=== PATIENT | male | born 1970 | race Hispanic/Latino ===

== ENCOUNTER 2018-01-31 11:55 | Inpatient (IN) | payer BC ==
[~2018-01-31] VITALS: Ht 167.6 cm; Wt 85.0 kg
[2018-01-31] MEDS ORDERED: IOPAMIDOL 300MG/ML 100 ML INFUS..BTL IV ONE (13:15)
[2018-01-31] MEDS ORDERED: PIPER-TAZ 3.375 GM 50 ML IV ONE (14:00)
[2018-01-31] MEDS ORDERED: PIPER-TAZ 3.375 GM 50 ML IV SCH ×2 (14:00→22:00)
[2018-01-31] MEDS ORDERED: HYDROMORPHONE 1MG/1ML INJ IV PRN (14:00)
[2018-01-31] MEDS ORDERED: MORPHINE SULFATE INJ 10 MG/ML IV ONE (14:00)
[2018-01-31] MEDS ORDERED: ONDANSETRON HCL INJ 2 MG/ML VIAL IV PRN (14:00)
[2018-01-31] MEDS ORDERED: ACETAMINOPHEN 325 MG TAB PO ONE (14:15)
[2018-01-31] MEDS: SODIUM CHLORIDE 0.9% 1000ML 1,000 ML IV SCH ×2 (14:21→21:43)
[2018-01-31 16:51] VITALS: BP 117/59
[2018-01-31] MEDS: CEFTRIAXONE SOD 1 GM VIAL IV SCH (19:53)
[2018-01-31 20:00] VITALS: BP 114/55
[2018-01-31] MEDS: METRONIDAZOLE 750MG/NS 150ML 150 ML IV SCH (21:43)
[2018-01-31 23:11] VITALS: BP 114/55
[2018-02-01] VITALS (7 sets, daily range): BP systolic 106–112; BP diastolic 53–63
[2018-02-01 04:44] LABS: BASOPHILS % 0.4 % (0.0-1.0); EOSINOPHILS # (AUTO) 0.1 (0.0-0.4); EOSINOPHILS % 1.6 % (0.0-6.0); HEMATOCRIT 35.7 % (38.2-49.6); HEMOGLOBIN 12.1 g/dL (14.0-18.0); LYMPHOCYTES # (AUTO) 1.4 (1.0-3.2); LYMPHOCYTES % 25.6 % (18.0-39.1); MEAN CORPUSCULAR HGB CONC 33.9 g/dL (31-35); MEAN CORPUSCULAR VOLUME 88.6 fL (81-99); MONOCYTES # (AUTO) 0.6 (0.2-0.8); MONOCYTES % 10.1 % (4.4-11.3); NEUTROPHILS # (AUTO) 3.4 (2.1-6.9); NEUTROPHILS % 61.9 % (38.7-80.0); PLATELET COUNT 161 x10e3/uL (140-360); RED BLOOD COUNT 4.03 x10e6/uL (4.3-5.7); RED CELL DISTRIBUTION WIDTH 13.9 % (11.7-14.4)
[2018-02-01 05:07] LABS: ALANINE AMINOTRANSFERASE 17 IU/L (0-55); ALBUMIN 3.2 g/dL (3.5-5.0); ALBUMIN/GLOBULIN RATIO 0.9 (0.8-2.0); ALKALINE PHOSPHATASE 76 IU/L (40-150); ANION GAP 12.1 mmol/L (8-16); BLOOD UREA NITROGEN 10 mg/dL (7-26); BUN/CREATININE RATIO 12 (6-25); CALCIUM 8.7 mg/dL (8.4-10.2); CARBON DIOXIDE 23 mmol/L (22-29); CHLORIDE 107 mmol/L (98-107); CREATININE, SERUM 0.84 mg/dL (0.72-1.25); EST GLOMERULAR FILTRATION RATE > 60 ML/MIN (60-); GLUCOSE 95 mg/dL (74-118); POTASSIUM 4.1 mmol/L (3.5-5.1); SODIUM 138 mmol/L (136-145)
[2018-02-01] MEDS: METRONIDAZOLE 750MG/NS 150ML 150 ML IV SCH ×3 (05:47→21:24)
[2018-02-01] MEDS: SODIUM CHLORIDE 0.9% 1000ML 1,000 ML IV SCH ×3 (05:47→19:47)
[2018-02-01] MEDS: CEFTRIAXONE SOD 1 GM VIAL IV SCH (19:47)
[2018-02-02] VITALS (10 sets, daily range): BP systolic 96–116; BP diastolic 56–69
[2018-02-02] MEDS: METRONIDAZOLE 750MG/NS 150ML 150 ML IV SCH ×3 (05:40→21:50)
[2018-02-02] MEDS: SODIUM CHLORIDE 0.9% 1000ML 1,000 ML IV SCH ×3 (05:40→21:55)
[2018-02-02] MEDS: CEFTRIAXONE SOD 1 GM VIAL IV SCH (19:21)
[2018-02-03] VITALS (7 sets, daily range): BP systolic 100–152; BP diastolic 57–71
[2018-02-03] MEDS: METRONIDAZOLE 750MG/NS 150ML 150 ML IV SCH ×3 (06:12→21:25)
[2018-02-03] MEDS: SODIUM CHLORIDE 0.9% 1000ML 1,000 ML IV SCH ×3 (10:09→21:25)
[2018-02-03] MEDS: CEFTRIAXONE SOD 1 GM VIAL IV SCH (20:00)
[2018-02-04] VITALS: BP 125/66
[2018-02-04 04:00] VITALS: BP 105/65
[2018-02-04] MEDS: METRONIDAZOLE 750MG/NS 150ML 150 ML IV SCH (05:05)
[2018-02-04 07:40] VITALS: BP 99/55
[2018-02-04 11:30] VITALS: BP 99/55
[2018-02-04] MEDS: SODIUM CHLORIDE 0.9% 1000ML 1,000 ML IV SCH (11:30)
[2018-02-04 12:29] VITALS: BP 119/67
[2018-02-04] MEDS ORDERED: LEVAQUIN500 MG PO (13:32)
[2018-02-04] MEDS ORDERED: FLAGYL250 MG PO (13:33)
--- NOTE | 2018-02-04 13:44 | Discharge Summary ---
DISCHARGE DIAGNOSIS: Acute cecal diverticulitis with perforation and extraluminal large bowel free air. PROCEDURE PERFORMED: None. CONSULTATIONS: GI, Dr. Jesse Zayas. HISTORY OF PRESENT ILLNESS: The patient is a 47-year-old male admitted from the emergency room complaining of right lower quadrant pain since the day prior to admission. The patient stated that he developed bloatness prior to admission, and had several loose bowel movements, and then the pain became severe, reason for which he was sent to the emergency room and later admitted to the hospital. The patient's past medical history was unremarkable. Physical examination revealed a 47-year-old male complaining of severe right lower quadrant pain. There was guarding and rebound in the right lower abdomen with diminished bowel sounds. HOSPITALIZATION COURSE: Because of the perforation with extraluminal air and clinical and physical signs of peritonitis associated with fever, the patient was started on intravenous antibiotics. With this treatment, his condition slowly improved. His fever resolved. His pain also resolved. He was discharged home in stable condition on February 04, 2018, to be followed up as an outpatient by [facility] and Dr. Zayas. Most likely, he will require colonoscopy after the acute process is resolved. FINAL DIAGNOSIS: Acute cecal diverticulitis with perforation, peritoneal signs and fever. DISCHARGE MEDICATIONS: Levaquin 500 mg for a week and Flagyl 300 mg p.o. for a week. URIEL GARZA MD Job#: [id number]
== END 2018-02-04 14:24 | disposition home or self-care (01) | DRG 392 ==
LOC: FSED 11:55 → ERHOLD 14:46 → MED/SURG 15:53
PROVIDERS: ADMIT Surgery; ATTEND Surgery
DX: K57.20 Diverticulitis of large intestine with perforation and abscess without bleeding (principal); R19.7 Diarrhea, unspecified; Z72.0 Tobacco use
CPT/HCPCS: 36415; 74177; 80048; 80053; 81003; 85025; 99284; J0696; J1170; J2270; J2405; J2543; J7030; Q9967

== ENCOUNTER → 2018-04-15 | Day surgery (SDC) | payer BC ==
[~2018-04-15] MED LIST: FENTANYL CITRATE/PF 100MCG/2 ML INJ ONE; FLAGYL250 MG PO; HYOSCYAMINE SULFATE 0.5 MG/ML INJ ONE; LEVAQUIN500 MG PO; MIDAZOLAM HCL 2 MG/2 ML VIAL ONE; PROPOFOL IV EMULSION 10 MG/ML 50 ML VIAL ONE
[2018-04-15 13:05] VITALS: BP 119/86
--- NOTE | 2018-04-15 14:23 | Operative Report ---
DATE OF PROCEDURE: April 15, 2018 PROCEDURES PERFORMED: 1. Esophagogastroduodenoscopy with biopsies. 2. Colonoscopy with polypectomy and biopsies. INDICATIONS FOR ESOPHAGOGASTRODUODENOSCOPY: History of heartburn indigestion. INDICATIONS FOR COLONOSCOPY: Colorectal cancer screening. MEDICATION: Patient was done under MAC. Please see anesthesiologist's note. PROCEDURE: With the patient in the left lateral decubitus position, the flexible fiberoptic Olympus gastroscope was introduced into the esophagus under direct visualization without any difficulty. There was some patchy erythema noted in the distal esophagus. A minute tongue of velvety red mucosa was noted to extend proximally from the GE junction, and that was biopsied to rule out Mishra's. The scope was then advanced with ease into the stomach. Mucosa overlying the antrum and the body revealed some patchy erythema and low-grade to moderate edema, and biopsies were obtained and sent to stain for H. pylori. The pylorus was of normal contour and shape, was intubated with ease, and the scope was advanced into the terminal ileum. The folds of the proximal 2nd portion were somewhat scalloped, and biopsies were obtained to rule out sprue. Mucosa overlying the duodenal bulb appeared to be within normal limits. The scope was then withdrawn back into the stomach and retroflexed, and the mucosa overlying the fundus and the cardia appeared to be within normal limits. The scope was then straightened out. The stomach was decompressed. The scope was subsequently withdrawn. Patient tolerated the procedure well. IMPRESSION: 1. Distal esophagitis. 2. Rule out Mishra's esophagus. 3. Gastritis biopsied. Biopsies sent to stain for H. pylori. 4. Rule out sprue. PLAN: Follow up histology. Initiate Protonix 40 mg 1 p.o. q.a.m. a.c. Patient was then turned around and after adequate lubrication of the anal canal, a flexible fiberoptic Olympus colonoscope was inserted into the rectum with ease and advanced all the way to the cecum. The scope was then withdrawn slowly and mucosa overlying the cecum, ascending colon, transverse colon other than for minimal diverticular disease appeared to be within normal limits. The mucosa overlying the left colon revealed some patchy areas of mild inflammatory changes, and biopsies were obtained. There was some scattered diverticular disease in the descending and the sigmoid colon. One polyp was snared from the sigmoid colon. Similar inflammatory findings were noted in the rectum, and biopsies were obtained. The scope was then retroflexed into the distal rectum and small internal hemorrhoids were noted, none of which was actively bleeding. The scope was then straightened out. It was subsequently withdrawn. Patient tolerated procedure well. IMPRESSION: 1. Mild patchy left-sided colitis. 2. Diverticulosis. 3. Sigmoid colon polyp snared. 4. Proctitis biopsied. 5. Internal hemorrhoids, none actively bleeding. PLAN: Follow up histology. Initiate VSL#3 one p.o. daily. Hydrocortisone suppository 25 mg, 1 suppository b.i.d. times 10 days, then p.r.n. Patient might benefit from a followup colonoscopy in 3 to 5 years. Job#: [id number]
== END | disposition home or self-care (01) ==
LOC: OR 08:40
PROVIDERS: ATTEND Internal Medicine Gastroenterology
DX: Z12.11 Encounter for screening for malignant neoplasm of colon (principal); K63.5 Polyp of colon; K29.70 Gastritis, unspecified, without bleeding; K51.50 Left sided colitis without complications; K21.9 Gastro-esophageal reflux disease without esophagitis; K20.9 Esophagitis, unspecified; K22.8 Other specified diseases of esophagus; K57.30 Diverticulosis of large intestine without perforation or abscess without bleeding; K62.89 Other specified diseases of anus and rectum; K64.8 Other hemorrhoids; R03.0 Elevated blood-pressure reading, without diagnosis of hypertension; F95.9 Tic disorder, unspecified; F17.210 Nicotine dependence, cigarettes, uncomplicated; Z01.810 Encounter for preprocedural cardiovascular examination
CPT/HCPCS: 43239; 45380; 45385; 93005; J1980; J2250; 45378; 45384